=== PATIENT | male | born 1985 | race Caucasian/White ===

== ENCOUNTER 2017-04-17 16:15 | Emergency (ER) | payer SELFPAY ==
[~2017-04-17] VITALS: Ht 177.8 cm; Wt 77.0 kg
[~2017-04-17 16:15] MED LIST: ASPI-390 PO; TRAM-10 PO
[2017-04-17 16:46] VITALS: TEMP 36.7; Ht 177.8 cm; Wt 77.0 kg
--- NOTE | 2017-04-17 18:25 | EMERGENCY ROOM VISIT NOTE ---
History First contact with patient: 17:10 Chief Complaint: SHOULDER PAIN Stated Complaint: RIGHT SHOULDER PAIN History of Present Illness The patient is a 31 year old male who presents to the Emergency Room via private vehicle with complaints of "right shoulder pain". The patient states that about 3 weeks ago, he was in the swelling: With his kids, playing with them , tossing them over his head and since then has developed pain in the right shoulder. He is unable to lift the arm at the level of the shoulder secondary to pain. 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 He rates the pain in the right shoulder at rest as a 4/10. He notes it will wake him up at night with pain. He is right-handed. He denies any numbness or tingling in the distal extremity. He denies any chest pain or shortness of breath. Review of Systems A complete 6-point Review of Systems was discussed with the patient, with pertinent positives and negatives listed in the History of Present Illness. All remaining Review of Systems questions can be considered negative unless otherwise specified. Past Medical/Surgical History Medical Problems: (1) Back pain (2) CALCULUS OF KIDNEY (3) CANNABIS ABUSE-UNSPEC (4) Depression (5) DRUG WITHDRAWAL (6) LUMBAGO (7) MIGRAINE UNSPECIFIED W/O INTRACT MGRN W/O STATUS MIGRAINOSUS (8) Migraine Unspecified W/O Intractable Migraine (9) Renal Colic (10) TOBACCO USE DISORDER Family History Cancer Diabetes mellitus Heart disease Hypertension Kidney disease Kidney stones Social History Smoking Status: Never Smoker Alcohol Use: heavy Marital Status: Occupation Status: [employer] Current/Historical Medications Scheduled PRN Acetaminophen (Tylenol), 1,000 MG PO UD PRN for Pain or Fever Hydrocodone/Acetaminophen 5MG/325MG (Aldie 5MG/325MG), 1-2 TABLET PO Q6 PRN for Pain Ibuprofen (Advil), 400 MG PO UD PRN for Pain or Fever Allergies Coded Allergies: No Known Allergies (Verified , 11/01/15) Physical Exam Vital Signs Date Time Temp Pulse Resp B/P (MAP) Pulse Ox O2 Delivery O2 Flow Rate FiO2 04/17/17 19:11 76 16 130/72 98 04/17/17 16:46 36.7 100 18 134/76 94 Room Air Physical Exam VITAL SIGNS - Vital signs and nursing notes were reviewed. Patient is afebrile , normotensive, slightly tachycardic, and is saturating well on room air 94%. GENERAL -31-year-old male appearing his stated age who is in no acute distress. Communicates well with provider and answers questions appropriately. SKIN - Without rashes. Skin overlying the right shoulder is unremarkable. EXTREMITIES - No clubbing or peripheral cyanosis. No pretibial edema present. The empty can test for the rotator cuff muscle is essentially positive. The patient does have difficulty raising the arm anteriorly as well as to the side. This is consistent with rotator cuff injury. He is neurovascularly intact in this region. Medical Decision & Procedures ER Provider Diagnostic Interpretation: RIGHT SHOULDER MIN 2 VIEWS ROUTINE CLINICAL HISTORY: Right shoulder pain s/p overhead lifting. COMPARISON: None FINDINGS: Alignment of the right shoulder is anatomic. There is no fracture. No osseous lesion is present. IMPRESSION: No acute fracture or dislocation of the right shoulder. Electronically signed by: Kayden Carter M.D. 04/17/2017 6:44 PM Dictated Date/Time: 04/17/2017 6:43 PM Medical Decision Patient was seen and evaluated as above. After having a thorough history and physical examination the decision was made to obtain a radiograph of the right shoulder. Patient drove here today, therefore declined pain medication. Radiograph results as above. No acute fracture or dislocation. I suspect the patient has a rotator cuff injury, therefore will be placed upon a sling, conservative management will be discussed, and he will follow up with orthopedics. He was educated upon management today's findings. He was educated upon worrisome symptoms which to return, had questions or discharge, and was discharged home in good condition. He will be given a short-term prescription for Aldie secondary to his pain. In the evaluation and treatment of this patient, the following differential diagnoses were considered: Shoulder Contusion, Shoulder Fracture, Shoulder Dislocation, Thoracic Outlet Syndrome, Adhesive Capsulitis, Rotator Cuff Tear, Proximal Clavicle Head Fracture, Apical Pneumonia, Pneumothorax, Hemothorax, or TB. [place] Drug [place] Search Results: patient reviewed within database, no issues identified Impression Primary Impression: Shoulder pain Departure Information Dispostion Home / Self-Care Condition GOOD Prescriptions Hydrocodone/Acetaminophen 5MG/325MG (Aldie 5MG/325MG) Tab 1-2 TABLET PO Q6 Y for Pain, #15 TAB For Initial Treatment Prov: Gama Thorpe PA-C 04/17/17 Referrals No Doctor, Assigned (PCP) Barrett Muhammad D.O. Patient Instructions My [facility] Additional Instructions You have been treated in the Emergency Department for Shoulder Pain. You have been prescribed NORCO to be used for pain control. This is a narcotic medication. You cannot drive or consume alcohol while on this medicine. This medicine should only be used for pain that cannot be controlled with over-the- counter pain medicines. Please no tylenol with the norco! For pain control, you can use the following [id number] medicines (if >12 yo): - Regular strength (325mg/tab) Tylenol (acetaminophen) 2 tabs every 4-6 hours as needed. Do not exceed 12 tablets in a 24 hour period. Avoid taking more than 3 grams (3000 mg) of Tylenol per day. This includes any other sources of acetaminophen you may take on a regular basis. - Regular strength (200 mg/tab) Advil (ibuprofen) 1-2 tabs every 4-6 hours as needed. Do not exceed a dose of 3200 mg per day. If this is a recent injury (<24 hrs), ice can be applied to the area of pain for the first 3 days to help decrease pain and inflammation. You have been provided the number for an Orthopaedic Surgeon. You should call this number as soon as possible to establish a follow-up visit from today's Emergency Department visit. Keep the shoulder brace/sling in place until evaluated by Orthopedics. Continue to perform range of motion exercises several times per day to help prevent the development of a "frozen shoulder". Return to the Emergency Department if your current symptoms worsen despite treatment course outlined above, or if you develop any of the following symptoms : intractable pain despite aforementioned treatment course or new onset of numbness or tingling of the arm.
--- NOTE | 2017-04-17 18:45 | DIAGNOSTIC IMAGING REPORT ---
RIGHT SHOULDER MIN 2 VIEWS ROUTINE CLINICAL HISTORY: Right shoulder pain s/p overhead lifting. COMPARISON: None FINDINGS: Alignment of the right shoulder is anatomic. There is no fracture. No osseous lesion is present. IMPRESSION: No acute fracture or dislocation of the right shoulder. Electronically signed by: Kayden Carter M.D. 04/17/2017 6:44 PM Dictated Date/Time: 04/17/2017 6:43 PM
[2017-04-17] MEDS ORDERED: NORCO 5/325MG HOME PACK PO STA (19:04)
[2017-04-17 19:11] VITALS: BP 130/72; PULSE 76; O2SAT 98
[2017-04-17] MEDS ORDERED: HYDR-5688 PO (19:48)
[2017-04-17] MEDS ORDERED: IBUP-1050 PO (22:52)
[2017-04-17] MEDS ORDERED: ACET-1256 PO (22:52)
== END 2017-04-17 19:12 | disposition home or self-care (01) ==
LOC: C.EDB 16:15 → C.EDD 19:12
DX: M25.511 Pain in right shoulder (principal); X50.1XXA Overexertion from prolonged static or awkward postures, initial encounter; Y92.89 Other specified places as the place of occurrence of the external cause; Z87.442 Personal history of urinary calculi; F32.9 Major depressive disorder, single episode, unspecified; G43.909 Migraine, unspecified, not intractable, without status migrainosus; Z80.9 Family history of malignant neoplasm, unspecified; Z83.3 Family history of diabetes mellitus; Z82.49 Family history of ischemic heart disease and other diseases of the circulatory system; Z84.1 Family history of disorders of kidney and ureter

== ENCOUNTER 2017-05-09 10:07 | Emergency (ER) | payer SELFPAY ==
[~2017-05-09] VITALS: Ht 177.8 cm; Wt 76.1 kg
[~2017-05-09 10:07] MED LIST changes: +ACET-1256 PO; -ASPI-390 PO; +HYDR-5688 PO; +IBUP-1050 PO; -TRAM-10 PO
[2017-05-09 10:17] VITALS: TEMP 36.6; Ht 177.8 cm; Wt 76.1 kg
[2017-05-09 10:55] LABS: BASO % 0.4 %; BASO ABS # 0.04 K/uL (0-0.2); COMPLETE YES; EOS % 1.8 %; HEMATOCRIT 46.1 % (42-52); IG% 0.2 %; LYMPH % 34.6 %; LYMPH ABS # 3.43 K/uL (1.2-3.4); MEAN CORPUSCULAR HEMOGLOBIN 29.5 pg (25-34); MEAN CORPUSCULAR HGB CONC 35.1 g/dl (32-36); MEAN PLATELET VOLUME 9.8 fL (7.4-10.4); MONO % 8.8 %; NEUT % 54.2 %; PLATELET COUNT 376 K/uL (130-400); RED BLOOD COUNT 5.49 M/uL (4.7-6.1); WHITE BLOOD COUNT 9.92 K/uL (4.8-10.8)
[2017-05-09] MEDS ORDERED: HYDROmorphone INJ 0.5 MG/0.5 ML SYR IV STA (10:58)
[2017-05-09] MEDS ORDERED: ONDANSETRON INJ 2 MG/ML 2 ML VIAL IV STA (10:58)
[2017-05-09] MEDS ORDERED: SODIUM CHLORIDE 0.9% 1000ML 1,000 ML IV STA (10:58)
[2017-05-09 11:03] LABS: ALT/SGPT 31 U/L (12-78); AST/SGOT 15 U/L (15-37); BLOOD UREA NITROGEN 15 mg/dl (7-18); BUN/CREATININE RATIO 15.2 (10-20); CALCIUM 9.9 mg/dl (8.5-10.1); CARBON DIOXIDE 30 mmol/L (21-32); CHLORIDE 105 mmol/L (98-107); GLUCOSE 84 mg/dl (70-99); POTASSIUM 4.1 mmol/L (3.5-5.1); SODIUM 138 mmol/L (136-145)
[2017-05-09 11:05] LABS: ALKALINE PHOSPHATASE 77 U/L (45-117)
[2017-05-09 11:08] LABS: URINE APPEARANCE CLOUDY (CLEAR); URINE COLOR DK YELLOW; URINE EPITHELIAL CELL AUTO >30 /lpf (0-5); URINE NITRITE NEG (NEG); URINE PH 5.5 (4.5-7.5); UROBILINOGEN NEG (NEG); ZZUR CULT IF INDIC CLEAN CATCH YES
[2017-05-09 11:09] LABS: MANUAL MICROSCOPIC REQUIRED? NO; REVIEW REQ? YES
[2017-05-09 11:11] LABS: URINE BILIRUBIN NEG (NEG)
[2017-05-09 11:20] LABS: URINE MUCUS PRESENT (NONE PRSENT)
--- NOTE | 2017-05-09 11:43 | DIAGNOSTIC IMAGING REPORT ---
KUB CLINICAL HISTORY: r flank pain pain COMPARISON STUDY: 11/01/2015 FINDINGS: 3 mm calcification lower pole left kidney. Nonobstructive bowel pattern. No additional paravertebral calcifications. IMPRESSION: 1. Small lower pole left renal calcification. Otherwise negative study. The above report was generated using voice recognition software. It may contain grammatical, syntax or spelling errors. Electronically signed by: Humza Martinez M.D. 05/09/2017 11:42 AM Dictated Date/Time: 05/09/2017 11:36 AM
--- NOTE | 2017-05-09 11:55 | DIAGNOSTIC IMAGING REPORT ---
ULTRASOUND KIDNEYS AND BLADDER CLINICAL HISTORY: Right flank pain. COMPARISON STUDY: Renal ultrasound dated 11/01/2015. Abdominal CT dated 08/02/2014. TECHNIQUE: Real-time, grayscale, and color flow sonography of the kidneys and bladder is performed. Images are reviewed in the transverse and longitudinal planes. FINDINGS: Kidneys: The kidneys are normal in size and echotexture. The right kidney measures 12.0 x 5.4 x 5.5 cm and the left kidney measures 12.3 x 5.2 x 5.7 cm. There is mild right hydronephrosis. No left-sided hydronephrosis is seen. No shadowing renal calculi are identified. There is no sonographic evidence of contour deforming renal mass lesion. No perinephric fluid is identified. Bladder: The bladder is normal in morphology. Debris is present within the bladder lumen. A left ureteral jet was seen. The right ureteral jet was absent. IMPRESSION: 1. There is mild right-sided hydronephrosis, and the right ureteral jet was absent. This is likely related to the presence of an obstructing ureteral calculus. The stone itself was not visualized. 2. No left-sided hydronephrosis is identified. 3. There is debris present within the bladder lumen. Correlation with urinalysis will be required. Electronically signed by: Renzo Rios M.D. 05/09/2017 11:53 AM Dictated Date/Time: 05/09/2017 11:51 AM
[2017-05-09 12:33] LABS: URINE APPEARANCE CLEAR (CLEAR); URINE BILIRUBIN NEG (NEG); URINE COLOR YELLOW; URINE NITRITE NEG (NEG); URINE SPECIFIC GRAVITY 1.016 (1.000-1.030); UROBILINOGEN NEG (NEG)
[2017-05-09 12:35] LABS: MANUAL MICROSCOPIC REQUIRED? NO; REVIEW REQ? NO
[2017-05-09] MEDS ORDERED: MoRPHine SULFATE 10 MG/ML CARP/VIAL IV STA (12:40)
[2017-05-09] MEDS ORDERED: TAMS0.4C38 PO (13:45)
[2017-05-09] MEDS ORDERED: OXYC1TAB3 PO (13:45)
[2017-05-09 14:16] LABS: URINE APPEARANCE CLEAR (CLEAR); URINE BILIRUBIN NEG (NEG); URINE COLOR YELLOW; URINE NITRITE NEG (NEG); URINE SPECIFIC GRAVITY 1.015 (1.000-1.030); UROBILINOGEN NEG (NEG)
[2017-05-09 14:17] LABS: MANUAL MICROSCOPIC REQUIRED? NO; REVIEW REQ? NO
[2017-05-09 14:28] VITALS: BP 95/58; PULSE 52; O2SAT 96
--- NOTE | 2017-05-09 16:05 | EMERGENCY ROOM VISIT NOTE ---
History Report prepared by Monae: Loulou Genao Under the Supervision of: Dr. Misael Franco D.O. First contact with patient: 10:25 Chief Complaint: FLANK PAIN Stated Complaint: RIGHT KIDNEY STONE History of Present Illness The patient is a 31 year old male who presents to the Emergency Room with complaints of worsening right flank pain that started yesterday. He states that he does not have insurance and the pain was not that severe yesterday so he avoided being evaluated. The pain was significantly worse today. The patient states that he has a history of multiple kidney stones and all of his symptoms are consistent with previous stones. He is also experiencing burning with urination and testicular soreness which are both typical for him when he has kidney stones. The patient is also experiencing nausea but denies vomiting. He denies hematuria. The patient follows with Dr. Joseph - Urology. He has had lithotripsy twice in the past for previous kidney stones. The patient adds that he passed a small kidney stone 1 week ago. Source of History: patient Onset: yesterday Position: other (right flank) Quality: other (right flank pain) Timing: worsening Associated Symptoms: + nausea, + urinary symptoms (burning with urination, no hematuria), No vomiting Note: testicular soreness Review of Systems See HPI for pertinent positives & negatives. A total of 10 systems reviewed and were otherwise negative. Past Medical & Surgical Medical Problems: (1) Back pain (2) CALCULUS OF KIDNEY (3) CANNABIS ABUSE-UNSPEC (4) Depression (5) DRUG WITHDRAWAL (6) LUMBAGO (7) MIGRAINE UNSPECIFIED W/O INTRACT MGRN W/O STATUS MIGRAINOSUS (8) Migraine Unspecified W/O Intractable Migraine (9) Renal Colic (10) TOBACCO USE DISORDER Family History Cancer Diabetes mellitus Heart disease Hypertension Kidney disease Kidney stones Social History Smoking Status: Current Every Day Smoker Alcohol Use: heavy Marital Status: Occupation Status: [employer] student Current/Historical Medications Scheduled Tamsulosin Hcl (Flomax), 0.4 MG PO DAILY Scheduled PRN Acetaminophen (Tylenol), 1,000 MG PO UD PRN for Pain or Fever Ibuprofen (Advil), 400 MG PO UD PRN for Pain or Fever Oxycodone Immediate Rel Tab (Roxicodone Ir), 5 MG PO Q6H PRN for Pain Allergies Coded Allergies: No Known Allergies (Verified , 05/09/17) Physical Exam Vital Signs Date Time Temp Pulse Resp B/P (MAP) Pulse Ox O2 Delivery O2 Flow Rate FiO2 05/09/17 14:28 52 18 95/58 96 Room Air 05/09/17 12:49 54 16 105/72 99 Room Air 05/09/17 11:12 64 16 123/76 98 Room Air 05/09/17 10:17 36.6 73 18 135/84 99 Room Air Physical Exam GENERAL: alert, standing in room holding right flank, well appearing, well nourished, significant distress, non-toxic EYE EXAM: normal conjunctiva OROPHARYNX: no exudate, no erythema, lips, buccal mucosa, and tongue normal and mucous membranes are moist NECK: supple, no nuchal rigidity, no adenopathy, non-tender LUNGS: Clear to auscultation. Normal chest wall mechanics HEART: no murmurs, S1 normal and S2 normal ABDOMEN: abdomen soft, non-tender, normo-active bowel sounds, no masses, no rebound or guarding. : Normal testicular exam. No penile discharge. BACK: Back is symmetrical on inspection and there is no deformity, no midline tenderness, no CVA tenderness. SKIN: no rashes and no bruising UPPER EXTREMITIES: upper extremities are grossly normal. LOWER EXTREMITIES: No pitting edema. NEURO EXAM: Normal sensorium, cranial nerves II-XII grossly intact, normal speech, no gross weakness of arms, no gross weakness of legs. Medical Decision & Procedures ER Provider Diagnostic Interpretation: Radiology results as stated below per my review and the radiologist's interpretation: KUB FINDINGS: 3 mm calcification lower pole left kidney. Nonobstructive bowel pattern. No additional paravertebral calcifications. IMPRESSION: 1. Small lower pole left renal calcification. Otherwise negative study. The above report was generated using voice recognition software. It may contain grammatical, syntax or spelling errors. Electronically signed by: Humza Martinez M.D. 05/09/2017 11:42 AM Dictated Date/Time: 05/09/2017 11:36 AM ULTRASOUND KIDNEYS AND BLADDER FINDINGS: Kidneys: The kidneys are normal in size and echotexture. The right kidney measures 12.0 x 5.4 x 5.5 cm and the left kidney measures 12.3 x 5.2 x 5.7 cm. There is mild right hydronephrosis. No left-sided hydronephrosis is seen. No shadowing renal calculi are identified. There is no sonographic evidence of contour deforming renal mass lesion. No perinephric fluid is identified. Bladder: The bladder is normal in morphology. Debris is present within the bladder lumen. A left ureteral jet was seen. The right ureteral jet was absent. IMPRESSION: 1. There is mild right-sided hydronephrosis, and the right ureteral jet was absent. This is likely related to the presence of an obstructing ureteral calculus. The stone itself was not visualized. 2. No left-sided hydronephrosis is identified. 3. There is debris present within the bladder lumen. Correlation with urinalysis will be required. Electronically signed by: Renzo Rios M.D. 05/09/2017 11:53 AM Dictated Date/Time: 05/09/2017 11:51 AM Laboratory Results 05/09/17 10:25 Red Blood Count 5.49, Mean Corpuscular Volume 84.0, Mean Corpuscular Hemoglobin 29.5, Mean Corpuscular Hemoglobin Concent 35.1, Mean Platelet Volume 9.8, Neutrophils (%) (Auto) 54.2, Lymphocytes (%) (Auto) 34.6, Monocytes (%) (Auto) 8.8, Eosinophils (%) (Auto) 1.8, Basophils (%) (Auto) 0.4, Neutrophils # (Auto) 5.38, Lymphocytes # (Auto) 3.43, Monocytes # (Auto) 0.87, Eosinophils # (Auto) 0.18, Basophils # (Auto) 0.04 05/09/17 10:25 Test 05/09/17 10:25 05/09/17 10:45 05/09/17 12:30 White Blood Count 9.92 K/uL (4.8-10.8) Red Blood Count 5.49 M/uL (4.7-6.1) Hemoglobin 16.2 g/dL (14.0-18.0) Hematocrit 46.1 % (42-52) Mean Corpuscular Volume 84.0 fL (80-100) Mean Corpuscular Hemoglobin 29.5 pg (25-34) Mean Corpuscular Hemoglobin Concent 35.1 g/dl (32-36) Platelet Count 376 K/uL (130-400) Mean Platelet Volume 9.8 fL (7.4-10.4) Neutrophils (%) (Auto) 54.2 % Lymphocytes (%) (Auto) 34.6 % Monocytes (%) (Auto) 8.8 % Eosinophils (%) (Auto) 1.8 % Basophils (%) (Auto) 0.4 % Neutrophils # (Auto) 5.38 K/uL (1.4-6.5) Lymphocytes # (Auto) 3.43 K/uL (1.2-3.4) Monocytes # (Auto) 0.87 K/uL (0.11-0.59) Eosinophils # (Auto) 0.18 K/uL (0-0.5) Basophils # (Auto) 0.04 K/uL (0-0.2) RDW Standard Deviation 39.2 fL (36.4-46.3) RDW Coefficient of Variation 12.9 % (11.5-14.5) Immature Granulocyte % (Auto) 0.2 % Immature Granulocyte # (Auto) 0.02 K/uL (0.00-0.02) Anion Gap 3.0 mmol/L (3-11) Est Creatinine Clear Calc Drug Dose 108.5 ml/min Estimated GFR () 114.1 Estimated GFR (Non- 98.5 BUN/Creatinine Ratio 15.2 (10-20) Calcium Level 9.9 mg/dl (8.5-10.1) Total Bilirubin 0.5 mg/dl (0.2-1) Direct Bilirubin < 0.1 mg/dl (0-0.2) Aspartate Amino Transf (AST/SGOT) 15 U/L (15-37) Alanine Aminotransferase (ALT/SGPT) 31 U/L (12-78) Alkaline Phosphatase 77 U/L (45-117) Total Protein 7.9 gm/dl (6.4-8.2) Albumin 4.2 gm/dl (3.4-5.0) Lipase 85 U/L (73-393) Urine Renal Epithelial Cells 0-5 /lpf (0-5) Urine Crystals CALCIUM OXALATE (NONE Urine Mucus PRESENT (NONE PRSENT) Urine Color YELLOW Urine Appearance CLEAR (CLEAR) Urine pH 6.0 (4.5-7.5) Urine Specific Commerce 1.015 (1.000-1.030) Urine Protein NEG (NEG) Urine Glucose (UA) NEG (NEG) Urine Ketones NEG (NEG) Urine Occult Blood NEG (NEG) Urine Nitrite NEG (NEG) Urine Bilirubin NEG (NEG) Urine Urobilinogen NEG (NEG) Urine Leukocyte Esterase NEG (NEG) Urine WBC (Auto) 1-5 /hpf (0-5) Urine RBC (Auto) 0-4 /hpf (0-4) Urine Hyaline Casts (Auto) 0 /lpf (0-5) Urine Epithelial Cells (Auto) 5-10 /lpf (0-5) Urine Bacteria (Auto) NEG (NEG) Laboratory results per my review. Medications Administered Medications (Trade) Dose Ordered Sig/Chauncey Route Start Time Stop Time Status Last Admin Dose Admin Sodium Chloride 1,000 ml @ 999 mls/hr Q1H1M STAT IV 05/09/17 10:58 05/09/17 11:58 DC 05/09/17 11:06 999 MLS/HR Ondansetron HCl (Zofran Inj) 4 mg NOW STAT IV 05/09/17 10:58 05/09/17 10:59 DC 05/09/17 11:10 4 MG Hydromorphone HCl (Dilaudid Inj) 1 mg NOW STAT IV 05/09/17 10:58 05/09/17 10:59 DC 05/09/17 11:11 1 MG Morphine Sulfate (MoRPHine SULFATE INJ) 6 mg NOW STAT IV 05/09/17 12:40 05/09/17 12:42 DC 05/09/17 12:52 6 MG ED Course ED COURSE: Vital signs were reviewed and showed normal. The patients medical record was reviewed The above diagnostic studies were performed and reviewed. ED treatments and interventions as stated above. 1040: The patient was evaluated in room A11. A complete history and physical examination was performed. 1058: Ordered Dilaudid 1 mg IV, Zofran Inj 4 mg IV, Sodium Chloride 1000 ml @ 999 mls/hr IV 1153: I reassessed the patient. He is resting comfortably. 1235: I reevaluated the patient. We are waiting on him to give another urine sample. 1240: Ordered Morphine Sulfate 6 mg IV 1341: I reassessed the patient. He gave another urine sample so we are waiting on the results. 1415: I reviewed the patient's case with Sahara COLON - Urology. She will setup an appointment for the patient and recommends having him follow-up in the office. 1429: Upon reevaluation, the patient is doing well. I discussed my findings with the patient and he understands and agrees with the treatment plan. Based on the patients age, coexisting illnesses, exam and lab findings the decision to treat as an outpatient was made. The patient remained stable while under my care. The patient appeared well at the time of discharge. Medical Decision Differential diagnoses includes but is not limited to gastritis, peptic ulcer disease, GERD, gallbladder disease, pancreatitis, small bowel obstruction, acute coronary syndrome, pericarditis, ischemic bowel, irritable bowel disease, irritable bowel syndrome, appendicitis, diverticulitis, malignancy, hernia, urinary tract infection, torsion, perforation, trauma, infectious. Patient is a 31-year-old male who presents the ER for right flank pain. His history of stones. UA shows hematuria and was initially contaminated. Recurrent UA was negative for any signs of infection. CT was not performed with multiple recent stones ultrasound was performed and showed right hydronephrosis with absence of ureteral jet. X-ray was unremarkable. Labs included CBC and BMP and LFTs were unremarkable. Patient was given IV narcotics. Patient felt significant better. Discussed with urology and no follow-up as an outpatient. Patient was discharged follow-up with urology for an obstructing right-sided kidney stone. PDMP was unremarkable. Discussed with Pt concerning signs and symptoms to watch out for. Pt was instructed to follow up with their PCP and discussed with the patient their option to return to the ED at anytime for persistent or worsening symptoms. The appropriate anticipatory guidance and out-patient management, including indications for return to the emergency department, were explained at length to the patient and understood. [place] Drug [place] Search Results: patient reviewed within database, no issues identified Medication Reconcilliation Current Medication List: was personally reviewed by me Blood Pressure Screening Patient's blood pressure: Normal blood pressure Consults Time Called: 1343 Consulting Physician: Sahara COLON - Urology Returned Call: [phone] I reviewed the patient's case with Sahara COLON - Urology. She will setup an appointment for the patient and recommends having him follow-up in the office. Impression Primary Impression: Renal colic Additional Impression: Hydronephrosis Scribe Attestation The scribe's documentation has been prepared under my direction and personally reviewed by me in its entirety. I confirm that the note above accurately reflects all work, treatment, procedures, and medical decision making performed by me. Departure Information Dispostion Home / Self-Care Prescriptions Tamsulosin Hcl (FLOMAX) 0.4 Mg Cap 0.4 MG PO DAILY, #10 CAP Prov: Misael Franco, DO 05/09/17 Oxycodone Immediate Rel Tab (ROXICODONE IR) 5 Mg Tab 5 MG PO Q6H Y for Pain, #15 TAB Prov: Misael Franco, DO 05/09/17 Referrals No Doctor, Assigned (PCP) Forms HOME CARE DOCUMENTATION FORM, IMPORTANT VISIT INFORMATION Patient Instructions ED Stone Renal W Colic, My [facility] Additional Instructions Please follow up with your primary care doctor or if you are a student, [facility] with in the next 24 hours. Any worsening of your symptoms, please return to the ED immediately. This includes any fevers greater than 100.4, worsening pain, chest pain, shortness breath, persistent nausea, vomiting, unable to eat or drink, or any other concerning signs or symptoms from your standpoint. You were given medications during this visit that will inhibit your ability to drive, operate machinery and work. Please do NOT drive, operate machinery, drink alcohol or work for the next 12hrs. You were found to have a blood pressure greater than 120 systolic over 90 diastolic. Due to the new Medicare guidelines, we are now recommending that you follow up with your primary care doctor in regards to this elevated blood pressure. Please call urology as listed below. Problem Qualifiers Additional Impression: Hydronephrosis Hydronephrosis type: unspecified Qualified Codes: N13.30 - Unspecified hydronephrosis
== END 2017-05-09 14:39 | disposition home or self-care (01) ==
LOC: C.EDB 10:09 → C.EDA 14:39
DX: N23 Unspecified renal colic (principal); N13.30 Unspecified hydronephrosis; F12.90 Cannabis use, unspecified, uncomplicated; F32.9 Major depressive disorder, single episode, unspecified; Z83.3 Family history of diabetes mellitus; Z82.49 Family history of ischemic heart disease and other diseases of the circulatory system; F17.200 Nicotine dependence, unspecified, uncomplicated